=== PATIENT | male | born 1970 | race Caucasian/White ===

== ENCOUNTER 2021-12-30 07:24 | Day surgery (SDC) | payer BC ==
[2021-12-30] MEDS ORDERED: fentaNYL 250 MCG/5 ML SDV ONE ×2 (07:50→09:07)
[2021-12-30] MEDS ORDERED: Propofol 200 MG/20 ML SDV ONE ×2 (07:50→09:07)
[2021-12-30] MEDS ORDERED: Sodium Chloride 0.9% 10 ML Syringe FLUSH PRN (08:00)
[2021-12-30] MEDS ORDERED: Lactated Ringers 1,000 ML IV SCH (08:00)
[2021-12-30] MEDS ORDERED: Ondansetron 4 MG/2 ML SDV ONE (09:07)
[2021-12-30] MEDS ORDERED: ceFAZolin 1 GM Vial ONE (09:07)
[2021-12-30] MEDS ORDERED: Dexamethasone 10 MG/ML SDV ONE (09:07)
[2021-12-30] MEDS ORDERED: Ketorolac 30 MG/ML SDV ONE (09:07)
[2021-12-30] MEDS ORDERED: Glycopyrrolate 0.2 MG/ML SDV ONE (09:07)
[2021-12-30] MEDS ORDERED: Bupivacaine 0.25%/EPINEPHrine 1:200,000 30 ML SDV INFILT ONE (09:24)
[2021-12-30] MEDS ORDERED: fentaNYL 50 MCG/ML SDV IVPUSH ONE (11:58)
== END 2021-12-30 14:23 | disposition home or self-care (01) ==
LOC: LL.SDS 07:24
PROVIDERS: ATTEND Surgery
DX: K40.91 Unilateral inguinal hernia, without obstruction or gangrene, recurrent (principal)
CPT/HCPCS: 00830; C1781; J0690; J1100; J1885; J2405; J2704; J3010; J3490; J7120